=== PATIENT | male | born 1960 | race Caucasian/White ===

== ENCOUNTER 2018-11-05 08:23 | Emergency (ER) | payer OTHER ==
[~2018-11-05] VITALS: Ht 177.8 cm; Wt 90.7 kg
[~2018-11-05 08:23] MED LIST: AMOXICILLIN875 MG PO; NYSTATIN 1100000 U/M PO; XANAX 0.25 MG0.25 MG PO
[2018-11-05] MEDS ORDERED: ZPAK PO (09:06)
[2018-11-05] MEDS ORDERED: PREDNISONE 20 M20 M1 PO (09:06)
[2018-11-05] MEDS ORDERED: VENTOLIN HFA 1818 GM INH (09:06)
[2018-11-05 09:30] VITALS: BP 131/93
== END 2018-11-05 09:31 | disposition home or self-care (01) ==
LOC: M.ERS 08:23
DX: J40 Bronchitis, not specified as acute or chronic (principal); R51 Headache; F41.9 Anxiety disorder, unspecified

== ENCOUNTER 2019-12-06 10:43 | Emergency (ER) | payer OTHER ==
[~2019-12-06] VITALS: Ht 177.8 cm; Wt 95.3 kg
[~2019-12-06 10:43] MED LIST changes: +PREDNISONE 20 M20 M1 PO; +VENTOLIN HFA 1818 GM INH; +ZPAK PO
[2019-12-06 11:17] LABS: INFLUENZA A ANTIGEN Negative (Negative); INFLUENZA B ANTIGEN Negative (Negative)
[2019-12-06] MEDS ORDERED: NYSTATIN 100,0015 G1 TOP (11:27)
[2019-12-06 11:35] VITALS: BP 119/82
== END 2019-12-06 11:37 | disposition home or self-care (01) ==
LOC: M.ERS 10:43
PROVIDERS: Nurse Practitioner Family
DX: J06.9 Acute upper respiratory infection, unspecified (principal); B37.9 Candidiasis, unspecified; F17.210 Nicotine dependence, cigarettes, uncomplicated; Z88.1 Allergy status to other antibiotic agents

== ENCOUNTER 2021-03-08 20:36 | Emergency (ER) | payer OTHER ==
[~2021-03-08] VITALS: Ht 177.8 cm; Wt 93.0 kg
[~2021-03-08 20:36] MED LIST changes: +NYSTATIN 100,0015 G1 TOP
[2021-03-08] MEDS ORDERED: PROAIR HFA8.5 GM INH (21:05)
[2021-03-08] MEDS ORDERED: PREDNISONE 20 M20 MG PO (21:05)
[2021-03-08 21:14] VITALS: BP 142/100
== END 2021-03-08 21:14 | disposition home or self-care (01) ==
LOC: M.ERS 20:36
DX: H11.31 Conjunctival hemorrhage, right eye (principal); J20.9 Acute bronchitis, unspecified; F41.9 Anxiety disorder, unspecified; Z79.899 Other long term (current) drug therapy; Z88.1 Allergy status to other antibiotic agents; Z87.891 Personal history of nicotine dependence